=== PATIENT | female | born 1955 | race Caucasian/White ===

== ENCOUNTER 2025-07-19 19:03 | Emergency (ER) | payer MEDICARE, OTHER, SELFPAY ==
[2025-07-19] MEDS: TORADOL 15 MG IV (19:10)
[2025-07-19 19:21] LABS: Hematocrit 41.9 % (37.0-47.0); Hemoglobin 14.5 g/dL (12.0-16.0); Mean Corp Hgb Conc. 34.6 g/dL (33.0-37.0); Mean Corpuscular Volume 87.5 fL (81.0-99.0); Nucleated Red Blood Cells % 0 %; Platelet Count 259 10^3/uL (130-400); Red Cell Dist. Width 12.7 % (11.5-14.5)
[2025-07-19 19:40] LABS: ALT (SGPT) 24 U/L (0-35); AST (SGOT) 27 U/L (14-36); Albumin 4.4 g/dl (3.5-5.0); Alkaline Phosphatase 74 U/L (38-126); Blood Urea Nitrogen 17 mg/dl (7-17); Calcium 9.5 mg/dl (8.4-10.2); Carbon Dioxide 22 mmol/L (22-30); Chloride 108 mmol/L (98-107); Glucose 150 mg/dl (70-99); Potassium 3.9 mmol/L (3.5-5.1); Sodium 140 mmol/L (135-145); Total Protein 6.9 g/dl (6.3-8.2); eGFR 54.06
[2025-07-19] MEDS: DILAUDID 0.5 MG IV (20:39)
[2025-07-19] MEDS: ZOFRAN 4 MG IV (20:40)
[2025-07-19 20:55] LABS: Urine Character Slightly Cloudy (Clear)
[2025-07-19 21:00] VITALS: BP 141/81
[2025-07-19 21:17] LABS: Urine Squamous Cell 0-2 /LPF (Few)
[2025-07-19 21:18] LABS: Urine Red Blood Cell 90-100 /HPF (0-2)
[2025-07-19] MEDS: FLOMAX 0.4 MG PO (21:53)
[2025-07-19] MEDS: NORCO 5/325 1 TABLET PO (21:53)
--- NOTE | 2025-07-19 21:53 | ED.GENMED ---
History of Present Illness
General
Chief Complaint: Flank Pain
Source: patient
Exam Limitations: none
Time Seen by Provider: 07/19/25 20:32
Nursing documentation reviewed up to this point in time: agreed with
History of Present Illness
History of Present Illness:
Patient to ED with report of left flank pain. Symptms started suddenly this afternoon. No prior history of same. Denies fever/chills. +nausea. NO vomiting or diarrhea. T
Past History
Past History
ED Past Medical History: Arrthythmia and GERD
Review of Systems
Review of Systems
Allergies reviewed?: Yes
All Other Systems: ROS reviewed and negative except as documented in HPI and ROS
Constitutional: Reports no symptoms
EENT: Reports no symptoms
Respiratory: Reports no symptoms
Cardiac: Reports no symptoms
ABD/GI: Reports nausea
: Reports flank pain
Musculoskeletal: Reports no symptoms
Skin: Reports no symptoms
Neurological: Reports no symptoms
Psychiatric: Reports no symptoms
Phy Exam
General Physical Exam
General Presentation: well appearing and no apparent distress
General age: appears stated age
General Skin: warm and dry
General Habitus: normal
General Mental: alert
Cardiovascular Exam
Cardiovascular Exam: regular rate/rhythm and no edema
Gastrointestinal Exam
Gastrointestinal Exam: normal bowel sounds, soft, no organomegaly, no pulsatile mass and non distended
Abdominal Scars: left flank
Musculoskeletal Exam
Musculoskeletal Exam: full ROM and neuro vasc intact
Skin Exam
Skin Exam: normal color, warm/dry and no rash
Psychiatric Exam
Psychiatric Exam: normal mood/affect
Course
Orders/Labs/Results
Orders:
Orders
07/19/25 19:10
Ketorolac [Toradol] 15 mg IV NOW STA
07/19/25 19:12
Complete Blood Count/With Diff Urgent
Comprehensive Metabolic Panel Urgent
07/19/25 20:35
HYDROmorphone [Dilaudid] 0.5 mg IV NOW STA
07/19/25 20:36
Ondansetron Injectable [Zofran] 4 mg .ROUTE .STK-MED ONE
07/19/25 20:40
Ondansetron Injectable [Zofran] 4 mg IV NOW STA
07/19/25 20:46
CT Abd/pel Without Iv Or Oral Urgent
Comment:
Reason For Exam: left flank pain
07/19/25 20:47
Urine Microscopic Reflex Cult Urgent
Urine Reflex Culture from [facility] [Urinalysis Reflex To Culture] Urgent
Date Specimen was Collected: 07/19/25
Time Specimen was Collected: 19:10
Urine Culture Urgent
NELY Source: U
Specimen Description:
Date Specimen was Collected: 07/19/25
Time Specimen was Collected: 19:10
07/19/25 21:48
Hydrocodone 5/APAP 325 [Levan 5/325] 1 tablet PO NOW STA
Tamsulosin [Flomax] 0.4 mg PO NOW STA
Abnormal Lab Results
07/19/25 07/19/25
19:12 20:47
Chloride 108 H mmol/L
(98-107)
Creatinine 1.1 H mg/dL
(0.6-1.0)
Glucose 150 H mg/dl
(70-99)
Urine Ketones 3+ A
(Negative)
Ur Occult Blood Reflex 4+ A
(Negative)
Urine Bilirubin 1+ A
(Negative)
Leukocyte Esterase Rfl 1+ A
(Negative)
Urine RBC 90-100 A /HPF
(0-2)
Urine Bacteria (Reflex) Many A
(Negative)
Urine Albumin (Reflex) 3+ A
(Neg - Trace)
07/19/25 19:12
07/19/25 19:12
Vital Signs
Initial and Last Documented VS:
Initial Vital Signs
Temp Pulse Resp Pulse Ox
98.4 F 88 20 99
07/19/25 19:07 07/19/25 19:07 07/19/25 19:07 07/19/25 19:07
Last Documented Vital Signs
Temp Pulse Resp Pulse Ox
98.4 F 83 19 99
07/19/25 19:07 07/19/25 21:33 07/19/25 21:33 07/19/25 19:07
*Radiology
Radiology exam reviewed: radiology read reviewed
*Pulse Oximetry
SaO2: 99
Oxygen Mode of Delivery: Room air
Patient hypoxic: no
*Critical Care Note
Total Time (30-74mins, 75-104mins- exclusive of procedures): Not Applicable
Update Note
Update Note:
Patient to ED with report of left flank pain. Pain developed suddenly this evening. CT confirms 2mm left UVJ stone with mild hydronephrosis, hydroureter. 1.7cm adrenal mass identified. Findings discussed wth her, SHe will be discharged home
with course of pain medication, flomax and she will continue to strain urine. Given number for urology f/u and she will call in AM to schedule appt, SHe will repeat CT in 3 mos as recommended by radiololgy for further monitoring of right adrenal
mass. Given instrucions on s/s to return to ED and she is agreeable to plan
ED Attending Note
-
Portions of this chart may have been created with voice recognition software.� Occasional wrong word or��sound alike� substitutions may have occurred due to the inherent limitations of voice recognition software.
Discharge Plan
Departure
Patient Disposition: Home (Routine Discharge)
Date of Disposition: 07/19/25
Time of Disposition: 21:49
Patient with high blood pressure during this ER visit?: No
Condition: Good
Covid-19: Not Applicable
Discharge Problem:
Kidney stones
Instructions: Kidney Stones (DC), Flank Pain (DC), How to Strain Your Urine
Prescriptions:
New
tamsulosin [Flomax] 0.4 mg capsule
0.4 mg PO DAILY Qty: 14 0RF
hydrocodone-acetaminophen 5-325 mg tablet
1 tab PO Q4H PRN (Reason: Pain) Qty: 14 0RF
ondansetron 4 mg tablet,disintegrating
4 mg PO Q8H PRN (Reason: nausea and vomiting) 4 Days Qty: 12 0RF
Referrals:
Mahad Degroot MD [Active, Urology] - Call in 1-3 days for appt
Gennaro Yo DO [Family Provider, Family Practice]
Activity Restrictions/Additional Instructions:
As we discussed you will need to repeat your CT scan in 3 mos to monitor the growth noted on your right adrenal gland. Follow up with urology as discussed. Return to the emergency department immediately for any changes in/worsening of your symptoms
Interventions
Interventions:
*Risk Screen - Suicide Last Done: 07/19/25 20:46
*General Assessment Last Done: 07/19/25 19:07
*Neglect/Abuse Screening Last Done: 07/19/25 20:46
*ED- Fall Risk Assessment Last Done: 07/19/25 20:46
*ED COVID-19 Vaccine History Last Done: 07/19/25 20:46
*ED Influenza Vaccine History Last Done: 07/19/25 20:46
WG-Nowmtn-Pqgxrvxtkt Assessment Last Done: 07/19/25 21:17
ED-Female Genitourinary Assessment Last Done: 07/19/25 21:17
Discharge Date and Time
Print Language: [place] CITIZ[place]
== END 2025-07-19 22:10 | disposition home or self-care (01) ==
LOC: EMR 19:03
PROVIDERS: Emergency Medicine; EMERGENCY PHYSICIAN Emergency Medicine; FAMILY PHYSICIAN Family Medicine
DX: N13.2 Hydronephrosis with renal and ureteral calculous obstruction (principal); E27.9 Disorder of adrenal gland, unspecified
CPT/HCPCS: 96374; 96375; 99284; 74176; 80053; 81003; 81015; 85025; 87086

== ENCOUNTER → 2025-10-04 07:54 | Outpatient (REF) | payer MEDICARE, OTHER, SELFPAY | LOC: RAD 07:54 | PROVIDERS: ATTENDING PHYSICIAN Family Medicine | DX: E27.9 Disorder of adrenal gland, unspecified (principal) | CPT/HCPCS: 74178; Q9967 ==